=== PATIENT | male | born 1980 | race Caucasian/White ===

== ENCOUNTER 2018-06-23 14:56 | Observation (INO) | payer BC, OTHER ==
--- NOTE | 2018-06-23 15:24 | ED PDOC ---
HPI: Chest Pain Time Seen by Provider: 06/23/18 15:19 Chief Complaint (Nursing): Chest Pain History Per: Patient Onset/Duration Of Symptoms: Hrs (7) Current Symptoms Are (Timing): Intermittent Episodes Severity: Moderate Pain Scale Rating Of: 6 Quality: Sharp Associated Symptoms: denies: Nausea, Dyspnea, Diaphoresis, Syncope Exacerbating Factors: Movement, Deep Breathing Alleviating Factors: None Additional Complaint(s): Sharp substernal chest pain started at 8 AM today, non-radiating, worse with inspiration. Deniers nausea, daiphoresis or SOB. Past Medical History Vital Signs: Last Vital Signs Temp 97 F L 06/23/18 15:14 Pulse 94 H 06/23/18 15:16 Resp 18 06/23/18 15:14 BP 141/82 06/23/18 15:14 Pulse Ox 96 06/23/18 15:14 - Medical History PMH: No Chronic Diseases - Family History Family History: States: Unknown Family Hx - Social History Ex-Smoker (has not smoked in the last 12 months): No Drugs: Denies - Home Medications Home Medications: Ambulatory Orders Medication Instructions Recorded No Known Home Med 06/23/18 - Allergies Allergies/Adverse Reactions: Allergies Allergy/AdvReac Type Severity Reaction Status Date / Time Penicillins Allergy RASH Verified 06/23/18 15:14 Review of Systems ROS Statement: Except As Marked, All Systems Reviewed And Found Negative Cardiovascular: Positive for: Chest Pain Physical Exam - Reviewed Nursing Documentation Reviewed: Yes Vital Signs Reviewed: Yes - Physical Exam Appears: Positive for: Non-toxic, No Acute Distress Head Exam: Positive for: ATRAUMATIC, NORMAL INSPECTION, NORMOCEPHALIC Skin: Positive for: Normal Color, Warm, DRY Eye Exam: Positive for: EOMI, Normal appearance, PERRL ENT: Positive for: Normal ENT Inspection Neck: Positive for: Normal, Painless ROM Cardiovascular/Chest: Positive for: Regular Rate, Rhythm. Negative for: Chest Non Tender (Ant chest wall tenderness.) Respiratory: Positive for: CNT, Normal Breath Sounds Gastrointestinal/Abdominal: Positive for: Normal Exam, Soft Back: Positive for: Normal Inspection Extremity: Positive for: Normal ROM. Negative for: Calf Tenderness Neurologic/Psych: Positive for: Alert, Oriented - Laboratory Results Result Diagrams: 06/23/18 15:28 06/23/18 15:28 - ECG Interpretation Of ECG: Initial EKG read by computer as STEMI, however, EKG evaluated by cardiologists and not felt to represent STEMI. Repeat EKG unchanged with initial Trop nl. Will tx with nitrates, pt took ASA 2 tabs [address] today. Will place in obs for cardiac monitoring and repeat trops O2 Sat by Pulse Oximetry: 96 - Progress Re-evaluation Time: 17:28 Condition: Improved - Critical Care Total Time (In Min): 30 Documented Critical Care: Time excludes all time spent performint seperately billable procedures Medical Decision Making Medical Decision Making: Dr. White discussed and sent EKG to Dr. Hui who did not think that EKG represented STEMI. I sent EKG to Dr. Mejia who also did not think that EKG represented STEMI. Disposition - Clinical Impression Clinical Impression: Chest pain - Patient ED Disposition Is Patient to be Admitted: Yes - Disposition Disposition Time: 17:25 Condition: FAIR Forms: [facility] ([place]) - Pt Status Changed To: Hospital Disposition Of: Observation - POA Present On Arrival: None
[2018-06-23] MEDS ORDERED: Nitroglycerin 2% 15 INCH/30 GM TUBE TOP STA (15:25)
[2018-06-23] MEDS ORDERED: Nitroglycerin 2% Ointment Foilpak UD TOP ONE (15:33)
[2018-06-23 15:41] LABS: BASO % 0.1 % (0.0-2.0); EOS % 0.2 % (0.0-4.0); HEMOGLOBIN 15.5 g/dL (12.0-18.0); LYMPH # 0.8 K/uL (1.0-4.3); LYMPH % 8.2 % (20.0-40.0); MEAN CELL VOLUME 86.2 fl (80.0-94.0); MEAN CORPUSCULAR HEMOGLOBIN 29.1 pg (27.0-31.0); MEAN CORPUSCULAR HGB CONC 33.8 g/dL (33.0-37.0); MEAN PLATELET VOLUME 10.2 fl (7.2-11.7); MONO # 0.9 K/uL (0.0-0.8); MONO % 9.3 % (0.0-10.0); NEUT # 7.9 K/uL (1.8-7.0); NEUT % 82.2 % (50.0-75.0); NRBC % 0.1 % (0.0-0.0); PLATELET COUNT 174 K/uL (130-400); RBC 5.32 Mil/uL (4.40-5.90); RED CELL DISTRIBUTION WIDTH 13.3 % (11.5-14.5); WHITE BLOOD COUNT 9.6 K/uL (4.8-10.8)
[2018-06-23 15:46] LABS: ALB/GLOB RATIO 1.2 (1.0-2.1); ALBUMIN 4.2 g/dL (3.5-5.0); ALT/SGPT 61 U/L (21-72); AST/SGOT 40 U/L (17-59); BLOOD UREA NITROGEN 13 mg/dl (9-20); CALCIUM 9.4 mg/dL (8.4-10.2); GFR NON-AFRICAN AMERICAN > 60
--- NOTE | 2018-06-23 16:09 | RAD ---
Date of service: 06/23/2018 HISTORY: dyspnea COMPARISON: No prior. FINDINGS: LUNGS: No active pulmonary disease. PLEURA: No significant pleural effusion identified, no pneumothorax apparent. CARDIOVASCULAR: Normal. OSSEOUS STRUCTURES: No significant abnormalities. VISUALIZED UPPER ABDOMEN: Normal. OTHER FINDINGS: None. IMPRESSION: No active disease.
[2018-06-23 16:40] LABS: BARBITURATES, UR NEGATIVE (NEGATIVE); BENZODIAZEPINES, UR NEGATIVE (NEGATIVE); OPIATES, UR NEGATIVE (NEGATIVE); PHENCYCLIDINE, UR NEGATIVE (NEGATIVE)
[2018-06-23 16:49] LABS: ANISOCYTOSIS SLIGHT; BANDS 3 % (0-2); LYMPHOCYTE 10 % (20-50); MONOCYTE 5 % (0-10); NEUTROPHIL 82 % (42-75); PLATELET ESTIMATE NORMAL (NORMAL); TOTAL CELLS COUNTED 100
[2018-06-23 17:01] LABS: LARGE PLATELETS PRESENT
--- NOTE | 2018-06-23 17:58 | CP.PCM.CON ---
History of Present Illness - History of Present Illness History of Present Illness: 38 y/o male admitted with sharp substernal chest pain started at 8 AM today, non-radiating, worse with inspiration. Denies nausea, diaphoresis or SOB. Jad lasted about 1 hour no relation to exertion EKG: Early repolarization Troponin: neg Past Patient History - Infectious Disease Hx of Infectious Diseases: None - Past Social History Drugs: Denies - CARDIAC Hx Cardiac Disorders: No - PULMONARY Hx Respiratory Disorders: No - PSYCHIATRIC Hx Psychophysiologic Disorder: No Hx Substance Use: No - SURGICAL HISTORY Hx Surgeries: No Meds Allergies/Adverse Reactions: Allergies Allergy/AdvReac Type Severity Reaction Status Date / Time Penicillins Allergy RASH Verified 06/23/18 20:44 Results - Vital Signs Recent Vital Signs: Last Vital Signs Temp 97 F L 06/23/18 15:14 Pulse 87 06/23/18 17:51 Resp 16 06/23/18 17:51 BP 116/68 06/23/18 17:51 Pulse Ox 98 06/23/18 17:51 - Labs Result Diagrams: 06/23/18 15:28 06/23/18 15:28 Labs: Laboratory Results - last 24 hr 06/23/18 06/23/18 06/23/18 15:28 15:28 16:02 WBC 9.6 RBC 5.32 Hgb 15.5 Hct 45.8 MCV 86.2 MCH 29.1 MCHC 33.8 RDW 13.3 Plt Count 174 MPV 10.2 Neut % (Auto) 82.2 H Lymph % (Auto) 8.2 L [place] % (Auto) 9.3 Eos % (Auto) 0.2 Baso % (Auto) 0.1 Neut # (Auto) 7.9 H Lymph # (Auto) 0.8 L [place] # (Auto) 0.9 H Eos # (Auto) 0.0 Baso # (Auto) 0.0 Neutrophils % (Manual) 82 H Band Neutrophils % 3 H Lymphocytes % (Manual) 10 L Monocytes % (Manual) 5 Platelet Estimate Normal Large Platelets Present Anisocytosis (manual) Slight Sodium 140 Potassium 3.7 Chloride 102 Carbon Dioxide 32 H Anion Gap 10 BUN 13 Creatinine 0.7 L Est GFR ( Amer) > 60 Est GFR (Non-Af Amer) > 60 Random Glucose 108 Calcium 9.4 Total Bilirubin 0.4 AST 40 ALT 61 Alkaline Phosphatase 110 Troponin I < 0.0120 Total Protein 7.7 Albumin 4.2 Globulin 3.5 Albumin/Globulin Ratio 1.2 Urine Opiates Screen Negative Urine Methadone Screen Negative Ur Barbiturates Screen Negative Ur Phencyclidine Scrn Negative Ur Amphetamines Screen Negative U Benzodiazepines Scrn Negative U Oth Cocaine Metabols Negative U Cannabinoids Screen Negative Assessment & Plan (1) Non-cardiac chest pain Assessment and Plan: pt can be discharged at any time Status: Acute
[2018-06-23] MEDS ORDERED: Enoxaparin 40 mg Syringe SC SCH (22:17)
[2018-06-24] MEDS ORDERED: Influenza Vaccine (5 YR UP)/PF 60 MCG/0.5 ML SYR IM ONE (09:00)
--- NOTE | 2018-06-24 09:17 | CARD ---
APPROVED REPORT Date of service: 06/23/2018 EKG Measurement Heart [id number] <Conclusion> Normal sinus rhythm ST elevation, consistent with early repolarization or pericarditis Abnormal ECG
--- NOTE | 2018-06-24 09:19 | CARD ---
APPROVED REPORT Date of service: 06/23/2018 EKG Measurement Heart [id number] <Conclusion> Normal sinus rhythm ST elevation, consistent with early repolarization or pericarditis Abnormal ECG
--- NOTE | 2018-06-24 10:15 | CP.PCM.HP ---
History of Present Illness - History of Present Illness History of Present Illness: 38 YR OLD MALE ADMITTED VIA THE ER BECAUSE OF SEVERE RETROSTERNAL CHEST PAIN ON THE DAY OF ADMISSION.NO RADIATION OF PAIN,SOB OR PALPITATION UNREMARKABLE PAST MEDICAL HISTORY FAMILY HISTORY UNREMAKABLE Present on Admission - Present on Admission Any Indicators Present on Admission: No Past Patient History - Infectious Disease Hx of Infectious Diseases: None - Past Medical History & Family History Past Medical History?: Yes - Past Social History Smoking Status: Never Smoked - CARDIAC Hx Cardiac Disorders: Yes Hx Angina: No Hx Atrial Fibrillation: No Hx Cardia Arrhythmia: No Hx Circulatory Problems: No Hx Congestive Heart Failure: No Hx Heart Attack: No Hx Heart Murmur: No Hx Heart Transplant: No Hx Hypercholesterolemia: Yes (in the past) Hx Hypertension: No Hx Hypotension: No Hx Internal Defibrillator: No Hx Mitral Valve Prolapse: No Hx Pacemaker: No Hx Peripheral Edema: No Hx Peripheral Vascular Disease: No - PULMONARY Hx Respiratory Disorders: No Hx Asthma: No Hx Bronchitis: No Hx Chronic Obstructive Pulmonary Disease (COPD): No Hx Emphysema: No Hx Lung Cancer: No Hx Pneumonia: No Hx Pulmonary Edema: No Hx Pulmonary Embolism: No Hx Respiratory Aspiration: No Hx Respiratory Tract Infection: No Hx Sleep Apnea: No Hx Tuberculosis: No - NEUROLOGICAL Hx Neurological Disorder: No Hx Alzheimer's Disease: No HX Cerebrovascular Accident: No Hx Dementia: No Hx Dizziness: No Hx Meningitis: No Hx Migraine: No Hx Multiple Sclerosis: No Hx Paralysis: No Hx Parkinson's Disease: No Hx Seizures: No Hx Syncope: No Hx Transient Ischemic Attacks (TIA): No Hx Vertigo: No - HEENT Hx HEENT Problems: Yes Hx Blind: No Hx Cataracts: No Hx Deafness: No Hx Difficulty Chewing: No Hx Epistaxis: No Hx Glaucoma: No Hx Macular Degeneration: No Hx Sinusitis: No Other/Comment: wears glasses - RENAL Hx Chronic Kidney Disease: No Hx Dialysis: No Hx Kidney Stones: No Hx Neurogenic Bladder: No Hx Pyelonephritis: No Hx Renal (Kidney) Cancer: No Hx Renal Failure: No - ENDOCRINE/METABOLIC Hx Endocrine Disorders: No Hx Adrenal Cancer: No Hx Diabetes Insipidus: No Hx Diabetes Mellitus Type 1: No Hx Diabetes Mellitus Type 2: No Hx Hyperthyroidism: No Hx Hypothyroidism: No Hx Systemic Lupus Erythematosus: No - HEMATOLOGICAL/ONCOLOGICAL Hx Blood Disorders: No Hx AIDS: No Hx Anemia: No Hx Blood Transfusions: No Hx Blood Transfusion Reaction: No Hx Bruising: No Hx Cancer: No Hx Chemotherapy: No Hx Cirrhosis: No Hx Gum Bleeding: No Hx Hemophilia: No Hx Hepatitis A: No Hx Hepatitis B: No Hx Hepatitis C: No Hx Human Immunodeficiency Virus (HIV): No Hx Leukemia: No Hx Metastesis: No Hx Shingles: No Hx Sickle Cell Disease: No Hx Unexplained Bleeding: No Hx von Willebrand's Disease: No - INTEGUMENTARY Hx Dermatological Problems: No Hx Basil Cell: No Hx Kerr: No Hx Cellulitis: No Hx Eczema: No Hx Melanoma: No Hx Psoriasis: No Hx Squamous Cell: No - MUSCULOSKELETAL/RHEUMATOLOGICAL Hx Musculoskeletal Disorders: Yes Hx Arthritis: No Hx Back Pain: Yes Hx Degenerative Joint Disease: No Hx Falls: No Hx Fractures: No Hx Gout: No Hx Herniated Disk: No Hx Myasthenia Gravis: No Hx Osteoarthritis: No Hx Osteomyelitis: No Hx Osteoporosis: No Hx Rhabdomyolysis: No Hx Rheumatoid Arthritis: No Hx Spinal Stenosis: No Hx Unsteady Gait: No Other/Comment: occassional joint pain in the hands. occassional cramps lower exts when asleep - GASTROINTESTINAL Hx Gastrointestinal Disorders: Yes Hx Bowel Surgery: No Hx Clostridium Difficile: No Hx Colitis: No Hx Colostomy: No Hx Constipation: No Hx Crohn's Disease: No Hx Diarrhea: No Hx Diverticulitis: No Hx Esophageal Varices: No Hx Fatty Liver Disease: No Hx Gall Bladder Disease: No Hx Gastritis: No Hx Gastroesophageal Reflux: Yes Hx Hemorrhoids: No Hx Ileostomy: No Hx Irritable Bowel: No Hx Liver Failure: No Hx Nausea: No Hx Pancreatitis: No HX Swallowing Problems: No Hx Ulcer: No Hx Vomiting: No - GENITOURINARY/GYNECOLOGICAL Hx Genitourinary Disorders: No Hx Bladder Cancer: No Hx Bladder Stone: No Hx Hematuria: No Hx Incontinence: No Hx Prostate Cancer: No Hx Prostate Problems: No Hx Reproductive Disorders: No Hx Sexually Transmitted Disorders: No Hx Urinary Tract Infection: No - PSYCHIATRIC Hx Psychophysiologic Disorder: No Hx Anxiety: No Hx Bipolar Disorder: No Hx Depression: No Hx Emotional Abuse: No Hx Hallucinations: No Hx Panic Symptoms: No Hx Paranoia: No Hx Post Traumatic Stress Disorder: No Hx Psychosis: No Hx Physical Abuse: No Hx Schizophrenia: No Hx Sexual Abuse: No Hx Substance Use: No - SURGICAL HISTORY Hx Surgeries: No Hx Abdominal Aortic Aneurysm Repair: No Hx Amputation: No Hx Angiogram: No Hx Angioplasty: No Hx Appendectomy: No Hx Arteriovenous Shunt: No Hx Arthroscopy: No Hx Bile Duct Stent: No Hx Breast Biopsy: No Hx Cataract Extraction: No Hx Cardiac Catheterization: No Hx Carotid Endarterectomy: No Hx Section: No Hx Cholecystectomy: No Hx Coronary Artery Bypass Graft: No Hx Coronary Stent: No Hx Dilation and Curettage: No Hx Eye Surgery: No Hx Femoral-Popliteal Bypass Graft: No Hx Gastric Bypass Surgery: No Hx Herniorrhaphy: No Hx Hysterectomy: No Hx Joint Replacement: No Hx Kidney Transplant: No Hx Liver Transplant: No Hx Mastectomy: No Hx Musculoskeletal Surgery: No Hx Open Heart Surgery: No Hx Open Reduction Internal Fixation: No Hx Orthopedic Surgery: No Hx Parathyroidectomy: No Hx Penile Implant: No Hx Pulmonary Surgery: No Hx Splenectomy: No Hx Thyroidectomy: No Hx Tonsillectomy: No Hx Tubal Ligation: No Hx Valve Replacement: No Hx Vascular Surgery: No Hx Vascular Access Device: No - ANESTHESIA Hx Anesthesia: Yes Hx Anesthesia Reactions: No Hx Malignant Hyperthermia: No Has any member of the family had a problem w/ anesthesia?: No Meds Allergies/Adverse Reactions: Allergies Allergy/AdvReac Type Severity Reaction Status Date / Time Penicillins Allergy RASH Verified 06/23/18 20:44 Physical Exam - Constitutional Appears: No Acute Distress - Head Exam Head Exam: ATRAUMATIC, NORMAL INSPECTION, NORMOCEPHALIC - Eye Exam Eye Exam: EOMI, Normal appearance, PERRL Pupil Exam: NORMAL ACCOMODATION, PERRL - ENT Exam ENT Exam: Mucous Membranes Moist, Normal Exam - Neck Exam Neck exam: Positive for: Normal Inspection - Respiratory Exam Respiratory Exam: Clear to Auscultation Bilateral, NORMAL BREATHING PATTERN - Cardiovascular Exam Cardiovascular Exam: REGULAR RHYTHM - GI/Abdominal Exam GI & Abdominal Exam: Normal Bowel Sounds, Soft. absent: Tenderness - Rectal Exam Rectal Exam: NORMAL INSPECTION - Extremities Exam Extremities exam: Positive for: normal inspection - Back Exam Back exam: NORMAL INSPECTION - Neurological Exam Neurological exam: Alert, CN II-XII Intact, Normal Gait, Oriented x3, Reflexes Normal - Psychiatric Exam Psychiatric exam: Normal Affect, Normal Mood - Skin Skin Exam: Dry, Intact, Normal Color, Warm Results - Vital Signs Recent Vital Signs: Last Vital Signs Temp 98.7 F 06/24/18 04:30 Pulse 81 06/24/18 04:30 Resp 20 06/24/18 04:30 BP 105/67 06/24/18 04:30 Pulse Ox 98 06/24/18 04:30 - Labs Result Diagrams: 06/23/18 15:28 06/23/18 15:28 Labs: Laboratory Results - last 24 hr 06/23/18 06/23/18 06/23/18 15:28 15:28 16:02 WBC 9.6 RBC 5.32 Hgb 15.5 Hct 45.8 MCV 86.2 MCH 29.1 MCHC 33.8 RDW 13.3 Plt Count 174 MPV 10.2 Neut % (Auto) 82.2 H Lymph % (Auto) 8.2 L [place] % (Auto) 9.3 Eos % (Auto) 0.2 Baso % (Auto) 0.1 Neut # (Auto) 7.9 H Lymph # (Auto) 0.8 L [place] # (Auto) 0.9 H Eos # (Auto) 0.0 Baso # (Auto) 0.0 Neutrophils % (Manual) 82 H Band Neutrophils % 3 H Lymphocytes % (Manual) 10 L Monocytes % (Manual) 5 Platelet Estimate Normal Large Platelets Present Anisocytosis (manual) Slight Sodium 140 Potassium 3.7 Chloride 102 Carbon Dioxide 32 H Anion Gap 10 BUN 13 Creatinine 0.7 L Est GFR ( Amer) > 60 Est GFR (Non-Af Amer) > 60 Random Glucose 108 Calcium 9.4 Total Bilirubin 0.4 AST 40 ALT 61 Alkaline Phosphatase 110 Troponin I < 0.0120 Total Protein 7.7 Albumin 4.2 Globulin 3.5 Albumin/Globulin Ratio 1.2 Urine Opiates Screen Negative Urine Methadone Screen Negative Ur Barbiturates Screen Negative Ur Phencyclidine Scrn Negative Ur Amphetamines Screen Negative U Benzodiazepines Scrn Negative U Oth Cocaine Metabols Negative U Cannabinoids Screen Negative 06/24/18 06/24/18 00:45 07:30 WBC RBC Hgb Hct MCV MCH MCHC RDW Plt Count MPV Neut % (Auto) Lymph % (Auto) [place] % (Auto) Eos % (Auto) Baso % (Auto) Neut # (Auto) Lymph # (Auto) [place] # (Auto) Eos # (Auto) Baso # (Auto) Neutrophils % (Manual) Band Neutrophils % Lymphocytes % (Manual) Monocytes % (Manual) Platelet Estimate Large Platelets Anisocytosis (manual) Sodium Potassium Chloride Carbon Dioxide Anion Gap BUN Creatinine Est GFR ( Amer) Est GFR (Non-Af Amer) Random Glucose Calcium Total Bilirubin AST ALT Alkaline Phosphatase Troponin I < 0.0120 < 0.0120 Total Protein Albumin Globulin Albumin/Globulin Ratio Urine Opiates Screen Urine Methadone Screen Ur Barbiturates Screen Ur Phencyclidine Scrn Ur Amphetamines Screen U Benzodiazepines Scrn U Oth Cocaine Metabols U Cannabinoids Screen Assessment & Plan - Assessment and Plan (Free Text) Assessment: CHEST PAIN-WITH NEGATIVE CARDIAC ENZYMES--DOUBT ACUTE MYOCARDIAL INFARCTION ABNORMAL EKG--PROBABLY EARLY REPOLARIZATION Plan: AWAIT CARDIOLOGY CONSULT WILL DISCHAREG AND REFER TO PMD FOR FURTHER OUT PATIENT CARDIAC EVALUATION IF CLEARED BY MAINS AND SERVICE SUPERVISOR - Date & Time Date: 06/24/18 Time: 10:18
[2018-06-24 10:35] VITALS: BP 101/60; PULSE 89; RESP 18; TEMP 98.9; O2SAT 99
--- NOTE | 2018-06-24 10:42 | CP.PCM.DIS ---
Provider - Provider Date of Admission: 06/23/18 17:30 Attending physician: Anupam Lopes MD Time Spent in preparation of Discharge (in minutes): 35 Diagnosis - Discharge Diagnosis (1) Chest pain Status: Acute Hospital Course - Lab Results Lab Results: Most Recent Lab Values WBC 9.6 K/uL (4.8-10.8) 06/23/18 15: RBC 5.32 Mil/uL (4.40-5.90) 06/23/18 15:28 Hgb 15.5 g/dL (12.0-18.0) 06/23/18 15:28 Hct 45.8 % (35.0-51.0) 06/23/18 15: MCV 86.2 fl (80.0-94.0) 06/23/18 15: MCH 29.1 pg (27.0-31.0) 06/23/18 15: MCHC 33.8 g/dL (33.0-37.0) 06/23/18 15:28 RDW 13.3 % (11.5-14.5) 06/23/18 15:28 Plt Count 174 K/uL (130-400) 06/23/18 15:28 MPV 10.2 fl (7.2-11.7) 06/23/18 15:28 Neut % (Auto) 82.2 % (50.0-75.0) H 06/23/18 15:28 Lymph % (Auto) 8.2 % (20.0-40.0) L 06/23/18 15: [place] % (Auto) 9.3 % (0.0-10.0) 06/23/18 15:28 Eos % (Auto) 0.2 % (0.0-4.0) 06/23/18 15:28 Baso % (Auto) 0.1 % (0.0-2.0) 06/23/18 15:28 Neut # (Auto) 7.9 K/uL (1.8-7.0) H 06/23/18 15:28 Lymph # (Auto) 0.8 K/uL (1.0-4.3) L 06/23/18 15:28 [place] # (Auto) 0.9 K/uL (0.0-0.8) H 06/23/18 15:28 Eos # (Auto) 0.0 K/uL (0.0-0.7) 06/23/18 15:28 Baso # (Auto) 0.0 K/uL (0.0-0.2) 06/23/18 15:28 Neutrophils % (Manual) 82 % (42-75) H 06/23/18 15:28 Band Neutrophils % 3 % (0-2) H 06/23/18 15:28 Lymphocytes % (Manual) 10 % (20-50) L 06/23/18 15:28 Monocytes % (Manual) 5 % (0-10) 06/23/18 15:28 Platelet Estimate Normal (NORMAL) 06/23/18 15:28 Large Platelets Present 06/23/18 15:28 Anisocytosis (manual) Slight 06/23/18 15:28 Sodium 140 mmol/l (132-148) 06/23/18 15:28 Potassium 3.7 MMOL/L (3.6-5.0) 06/23/18 15:28 Chloride 102 mmol/L (98-107) 06/23/18 15:28 Carbon Dioxide 32 mmol/L (22-30) H 06/23/18 15:28 Anion Gap 10 (10-20) 06/23/18 15:28 BUN 13 mg/dl (9-20) 06/23/18 15:28 Creatinine 0.7 mg/dl (0.8-1.5) L 06/23/18 15:28 Est GFR ( Amer) > 60 06/23/18 15:28 Est GFR (Non-Af Amer) > 60 06/23/18 15:28 Random Glucose 108 mg/dL (75-110) 06/23/18 15:28 Calcium 9.4 mg/dL (8.4-10.2) 06/23/18 15:28 Total Bilirubin 0.4 mg/dl (0.2-1.3) 06/23/18 15:28 AST 40 U/L (17-59) 06/23/18 15:28 ALT 61 U/L (21-72) 06/23/18 15:28 Alkaline Phosphatase 110 U/L (38-126) 06/23/18 15:28 Troponin I < 0.0120 ng/mL (0.00-0.120) 06/24/18 07:30 Total Protein 7.7 G/DL (6.3-8.2) 06/23/18 15:28 Albumin 4.2 g/dL (3.5-5.0) 06/23/18 15:28 Globulin 3.5 gm/dL (2.2-3.9) 06/23/18 15:28 Albumin/Globulin Ratio 1.2 (1.0-2.1) 06/23/18 15:28 Urine Opiates Screen Negative (NEGATIVE) 06/23/18 16:02 Urine Methadone Screen Negative (NEGATIVE) 06/23/18 16:02 Ur Barbiturates Screen Negative (NEGATIVE) 06/23/18 16:02 Ur Phencyclidine Scrn Negative (NEGATIVE) 06/23/18 16:02 Ur Amphetamines Screen Negative (NEGATIVE) 06/23/18 16:02 U Benzodiazepines Scrn Negative (NEGATIVE) 06/23/18 16:02 U Oth Cocaine Metabols Negative (NEGATIVE) 06/23/18 16:02 U Cannabinoids Screen Negative (NEGATIVE) 06/23/18 16:02 Discharge Exam - Head Exam Head Exam: ATRAUMATIC, NORMAL INSPECTION, NORMOCEPHALIC Discharge Plan - Follow Up Plan Condition: FAIR Disposition: HOME/ ROUTINE
[2018-06-24] MEDS ORDERED: Enoxaparin 40 mg Syringe SC SCH (23:00)
--- NOTE | 2018-06-25 00:18 | CARD ---
APPROVED REPORT Date of service: 06/23/2018 EKG Measurement Heart [id number] <Conclusion> Normal sinus rhythm ST elevation, consider early repolarization Abnormal ECG
== END 2018-06-24 11:35 | disposition home or self-care (01) ==
LOC: H.ER 14:56 → H.ERHOLD 17:30 → H.TEL 18:30
PROVIDERS: ADMIT Internal Medicine Pulmonary Disease; ATTEND Internal Medicine Pulmonary Disease
DX: R07.9 Chest pain, unspecified (principal); K21.9 Gastro-esophageal reflux disease without esophagitis; M25.542 Pain in joints of left hand; M25.541 Pain in joints of right hand; M54.9 Dorsalgia, unspecified; R07.2 Precordial pain; E78.00 Pure hypercholesterolemia, unspecified; Z23 Encounter for immunization
CPT/HCPCS: 36415; 71045; 80053; 84484; 85025; 93005; 99285; G0008; G0378; G0480; J1650; Q2035